=== PATIENT | female | born 1970 | race Caucasian/White ===

== ENCOUNTER 2022-04-18 18:19 | Emergency (ER) | payer OTHER, SELFPAY ==
[2022-04-18 18:20] VITALS: BP 152/86; PULSE 106; RESP 14; TEMP 36.9; O2SAT 96; BMI 34.7
[2022-04-18 19:56] VITALS: PULSE 82; RESP 18; O2SAT 97
--- NOTE | 2022-04-18 20:36 | EX.ED.GENINJ ---
HPI History of Present Illness Chief Complaint: Laceration Informant: patient Onset/Context/Timing Onset: Today Narrative Narrative: Patient presents with lacerations to her left proximal forearm. She was dumping a hopper of scrap metal at work when she got cut. She is right-hand dominant. She is unsure of her last tetanus update. [facility] Medical History Hypertension Home Medications lisinopril 5 mg tablet 5 mg PO DAILY 04/18/22 [History Last Taken Unknown] Allergy/AdvReac Type Severity Reaction Status Date / Time No Known Allergies Allergy Verified 04/18/22 18:22 Family History no significant family his Social History Smoking Status: Current every day smoker tobacco type: cigarettes ROS ROS ED Constitutional Constitutional ED: Denies chills or fever(s) Eyes Eyes: Denies change in vision or discharge from eye(s) ENT ENT ED: Denies discharge from eye(s), rhinorrhea or sore throat Cardiovascular Cardiovascular: Denies chest pain or palpitations Respiratory/Chest Respiratory/Chest: Denies cough or dyspnea Gastrointestinal Gastrointestinal: Denies abdominal pain, nausea or vomiting Genitourinary Genitourinary ED: Denies difficulty urinating or dysuria Musculoskeletal Musculoskeletal: Reports extremity pain; Denies back pain Integumentary Reports other Details: Left forearm lacerations ; Denies Abrasions or rash Neurologic Neurologic: Denies headache(s) or weakness Allergic/Immunologic Allergic/Immunologic ED: Denies lip swelling or urticaria EXAM Physical Exam Const Vital Signs: 04/18/22 18:20 04/18/22 19:56 Temperature 98.4 F Temperature Source Temporal Pulse Rate 106 H 82 Respiratory Rate 14 18 Blood Pressure 152/86 H Blood Pressure Mean 108 Pulse Ox 96 97 Oxygen Delivery Method Room Air Room Air Positive well nourished and well developed General Appearance ED: well developed HEENT Reports normocephalic and head/scalp atraumatic Eyes PERRL and EOMs intact bilaterally Neck supple Chest Wall inspection of chest normal and palpation of chest normal Resp normal respiratory effort and clear to auscultation bilaterally Cardio regular rate and regular rhythm GI normal to inspection, nondistended, normoactive bowel sounds Palpation: soft Back/Spine no CVA tenderness Extremity Extremity Narrative: 2 superficial lacerations to the proximal volar left forearm. 1 laceration measures 3 cm, the other 4 cm. Mild bleeding noted from both. Full range of motion of the left arm without difficulty. Neuro oriented x3 and no sensory deficits noted Sensorium / Orientation: alert Motor Exam: strength 5/5 throughout Psych mental status grossly normal Skin Skin Narrative: Lacerations as above PROC Procedures Lacerations 3 cm left forearm laceration: Length: 1.18 in Depth: Sub Q Shape: Linear Laceration repair: Irrigated, Lidocaine and Local Number of Sutures/[place]: 6 Suture Information: Ethilon, Simple and 5-0 4 cm left forearm laceration: Length: 1.57 in Depth: Sub Q Shape: Linear Laceration repair: Irrigated, Lidocaine and Local Number of Sutures/[place]: 6 Suture Information: Ethilon, Simple and 5-0 MDM MDM MDM Narrative Medical decision making narrative: Tetanus update provided. 2 lacerations to the left forearm repaired. Please see procedure note for details. Total of 8 cc of 1% lidocaine is used locally for anesthesia. Total of 12 sutures placed. [facility] Discharge Plan Triage Chief Complaint: Laceration ED Provider: Sindhu Cox Dx/Rx/DC Orders Clinical Impression: Laceration of forearm Instructions: ED Laceration: All Closures Prescriptions: No Action lisinopril 5 mg Tablet 5 mg PO DAILY Stand Alone Forms: Work Status Form Primary Care Provider: Monica Hernandes Referrals: Corporate,Care [GROUP OF PHYSICIANS] - 5-7 Days Disposition Disposition: Home, Self Care
[2022-04-18] MEDS: Diphth,Pertuss(Acell),Tet Vac 0.5 ML Vial IM (20:42)
[2022-04-18 20:47] VITALS: BP 132/73; PULSE 74; RESP 18; O2SAT 100
== END 2022-04-18 21:02 | disposition home or self-care (01) ==
PROVIDERS: Emergency Provider Emergency Medicine; PCP Family Medicine; Visit Provider Emergency Medicine
DX: S51.819A Laceration without foreign body of unspecified forearm, initial encounter (principal); F17.210 Nicotine dependence, cigarettes, uncomplicated; I10 Essential (primary) hypertension; W26.8XXA Contact with other sharp object(s), not elsewhere classified, initial encounter; Y92.89 Other specified places as the place of occurrence of the external cause; Z23 Encounter for immunization
CPT/HCPCS: 12002; 90471; 90715; 99282